=== PATIENT | male | born 1935 | race Caucasian/White ===

== ENCOUNTER 2021-07-04 14:51 | Inpatient (IN) ==
[2021-07-04] MEDS ORDERED: Hyoscyamine SL 0.125 MG TAB.SUBL PO PRN (21:18)
[2021-07-04] MEDS ORDERED: Diphenoxylate/Atropine 1 TAB TABLET PO PRN (21:18)
[2021-07-04] MEDS: *HR* OxyCODONE/APAP 10/325 TABLET PO PRN (23:12)
[2021-07-05] MEDS: *HR* Enoxaparin 40 MG/0.4 ML SYRINGE SQ SCH (05:34)
[2021-07-05 06:13] LABS: Basophils % 0.2 %; Eosinophils # 0.1 K/mcL (0.0-0.6); Eosinophils % 1.2 %; Hematocrit 26.9 % (37.5-50.1); Hemoglobin 8.8 g/dL (12.9-16.9); Lymphocytes # 0.7 K/mcL (0.6-4.6); Lymphocytes % 11.9 %; Mean Corpuscular HGB Conc 32.7 g/dL (31.6-35.5); Mean Corpuscular Hemoglobin 29.7 pg (28.0-33.3); Mean Corpuscular Volume 90.9 fL (83.0-100.0); Mean Platelet Volume 10.9 fL (9.4-12.4); Monocytes # 0.6 K/mcL (0.0-1.3); Monocytes % 9.6 %; Neutrophils # 4.6 K/mcL (1.6-8.9); Platelet Count 173 K/mcL (140-400); Red Blood Count 2.96 M/mcL (4.19-5.50); Red Cell Distribution Width 16.3 % (11.5-14.5); Segmented Neutrophils % 76.1 %; White Blood Count 6.1 K/mcL (4.3-11.1)
[2021-07-05 06:26] LABS: BUN/Creatinine Ratio 20 (6-26); Blood Urea Nitrogen 27 mg/dL (8-23); Carbon Dioxide 23 mEq/L (23-29); Chloride 109 mEq/L (98-107); Glucose 76 mg/dL (70-105); Osmolality,Calculated 288 (280-300); Sodium 137 mEq/L (136-145); eGFR For African Americans > 60 (> 60); eGFR For Non-African Americans 51 (> 60)
[2021-07-05] MEDS: Magnesium Oxide 400 MG TABLET PO SCH (08:02)
[2021-07-05] MEDS: Multivit/Ca/Min/Fe/FA 1 TAB TABLET PO SCH (08:02)
[2021-07-05] MEDS: Lactobacillus 1 EACH CAP.SPRINK PO SCH (08:02)
[2021-07-05] MEDS: Cholecalciferol (D-3) 1,000 UNIT (25MCG) TABLET PO SCH (08:02)
[2021-07-05] MEDS: Aspirin Enteric Coated 81 MG Tablet PO SCH (08:02)
[2021-07-05] MEDS ORDERED: metroNIDAZOLE 500 MG TABLET PO SCH (09:00)
[2021-07-05] MEDS: *HR* OxyCODONE/APAP 10/325 TABLET PO PRN ×2 (16:34→22:49)
[2021-07-05] MEDS: Famotidine 20 MG TABLET PO SCH (20:42)
[2021-07-05] MEDS ORDERED: *HR* OxyCODONE/APAP 5/325 TABLET PO SCH (21:00)
[2021-07-06 04:59] LABS: Basophils % 0.4 %; Eosinophils # 0.1 K/mcL (0.0-0.6); Hematocrit 28.8 % (37.5-50.1); Hemoglobin 9.3 g/dL (12.9-16.9); Immature Granulocytes % 0.7 % (0-4); Lymphocytes # 0.7 K/mcL (0.6-4.6); Lymphocytes % 10.3 %; Mean Corpuscular HGB Conc 32.3 g/dL (31.6-35.5); Mean Corpuscular Hemoglobin 29.5 pg (28.0-33.3); Mean Corpuscular Volume 91.4 fL (83.0-100.0); Mean Platelet Volume 10.8 fL (9.4-12.4); Monocytes # 0.7 K/mcL (0.0-1.3); Monocytes % 9.7 %; Neutrophils # 5.6 K/mcL (1.6-8.9); Platelet Count 198 K/mcL (140-400); Red Blood Count 3.15 M/mcL (4.19-5.50); Red Cell Distribution Width 16.4 % (11.5-14.5); Segmented Neutrophils % 77.9 %; White Blood Count 7.2 K/mcL (4.3-11.1)
[2021-07-06] MEDS: *HR* Enoxaparin 40 MG/0.4 ML SYRINGE SQ SCH (06:22)
[2021-07-06] MEDS: Aspirin Enteric Coated 81 MG Tablet PO SCH (08:22)
[2021-07-06] MEDS: Cholecalciferol (D-3) 1,000 UNIT (25MCG) TABLET PO SCH (08:23)
[2021-07-06] MEDS: Magnesium Oxide 400 MG TABLET PO SCH (08:23)
[2021-07-06] MEDS: Multivit/Ca/Min/Fe/FA 1 TAB TABLET PO SCH (08:23)
[2021-07-06] MEDS: Lactobacillus 1 EACH CAP.SPRINK PO SCH (08:23)
[2021-07-06] MEDS: *HR* OxyCODONE/APAP 10/325 TABLET PO PRN ×2 (18:27→23:01)
[2021-07-06] MEDS: Famotidine 20 MG TABLET PO SCH (23:01)
[2021-07-07] MEDS: Lactobacillus 1 EACH CAP.SPRINK PO SCH (09:23)
[2021-07-07] MEDS: Cholecalciferol (D-3) 1,000 UNIT (25MCG) TABLET PO SCH (09:23)
[2021-07-07] MEDS: Aspirin Enteric Coated 81 MG Tablet PO SCH (09:23)
[2021-07-07] MEDS: Multivit/Ca/Min/Fe/FA 1 TAB TABLET PO SCH (09:24)
[2021-07-07] MEDS: *HR* Enoxaparin 40 MG/0.4 ML SYRINGE SQ SCH ×2 (09:24→09:47)
[2021-07-07] MEDS: Magnesium Oxide 400 MG TABLET PO SCH (09:24)
[2021-07-07] MEDS ORDERED: 0.9 % Sodium Chloride 1,000 ML IV ONE (11:05)
[2021-07-07 11:29] LABS: Calcium 7.4 mg/dL (8.6-10.3); Potassium 4.5 mEq/L (3.5-5.1)
[2021-07-07 15:12] LABS: VBG Ionized Calcium 1.14 mmol/L (1.15-1.35)
[2021-07-07] MEDS: *HR* OxyCODONE/APAP 10/325 TABLET PO PRN (18:38)
[2021-07-07] MEDS: Famotidine 20 MG TABLET PO SCH (18:38)
[2021-07-07] MEDS: *HR* Heparin 5,000 UNIT/ML VIAL SQ SCH (22:46)
[2021-07-08 01:18] LABS: Bilirubin,Urine Negative (Negative); Blood,Urine Negative (Negative); Clarity,Urine Slightly Cloudy (Clear); Glucose,Urine (UA) Normal (Normal); Ketones,Urine Negative (Negative); Leukocyte Esterase,Urine Negative (Negative); Nitrite,Urine Negative (Negative); PH,Urine 5.5 pH Units (5.0-8.0); Protein,Urine Trace mg/dL (Neg-Trace); Urobilinogen,Urine Normal (Normal)
[2021-07-08 01:23] LABS: Color,Urine Yellow (Yellow)
[2021-07-08 01:24] LABS: Amorphous Sediment,Urine Few per hpf (None-Few)
[2021-07-08] MEDS: *HR* Heparin 5,000 UNIT/ML VIAL SQ SCH ×3 (04:32→19:40)
[2021-07-08 09:18] LABS: Basophils % 0.4 %; Eosinophils % 0.3 %; Hematocrit 32.5 % (37.5-50.1); Hemoglobin 10.4 g/dL (12.9-16.9); Immature Granulocytes % 0.7 % (0-4); Lymphocytes # 0.7 K/mcL (0.6-4.6); Lymphocytes % 10.7 %; Mean Corpuscular Hemoglobin 29.6 pg (28.0-33.3); Mean Corpuscular Volume 92.6 fL (83.0-100.0); Mean Platelet Volume 10.2 fL (9.4-12.4); Monocytes # 0.4 K/mcL (0.0-1.3); Monocytes % 5.8 %; Neutrophils # 5.6 K/mcL (1.6-8.9); Platelet Count 247 K/mcL (140-400); Red Blood Count 3.51 M/mcL (4.19-5.50); Red Cell Distribution Width 16.6 % (11.5-14.5); Segmented Neutrophils % 82.1 %; White Blood Count 6.8 K/mcL (4.3-11.1)
[2021-07-08 09:41] LABS: Calcium 7.2 mg/dL (8.6-10.3); Potassium 4.8 mEq/L (3.5-5.1)
[2021-07-08] MEDS: Multivit/Ca/Min/Fe/FA 1 TAB TABLET PO SCH (10:20)
[2021-07-08] MEDS: Magnesium Oxide 400 MG TABLET PO SCH (10:21)
[2021-07-08] MEDS: Aspirin Enteric Coated 81 MG Tablet PO SCH (10:21)
[2021-07-08] MEDS: Lactobacillus 1 EACH CAP.SPRINK PO SCH (10:21)
[2021-07-08] MEDS: Cholecalciferol (D-3) 1,000 UNIT (25MCG) TABLET PO SCH (10:21)
[2021-07-08] MEDS: Famotidine 20 MG TABLET PO SCH (19:37)
[2021-07-08] MEDS: *HR* OxyCODONE/APAP 10/325 TABLET PO PRN (19:58)
[2021-07-09] MEDS: *HR* Heparin 5,000 UNIT/ML VIAL SQ SCH ×3 (05:33→21:51)
[2021-07-09] MEDS: Magnesium Oxide 400 MG TABLET PO SCH (08:00)
[2021-07-09] MEDS: Cholecalciferol (D-3) 1,000 UNIT (25MCG) TABLET PO SCH (08:00)
[2021-07-09] MEDS: Lactobacillus 1 EACH CAP.SPRINK PO SCH (08:00)
[2021-07-09] MEDS: Aspirin Enteric Coated 81 MG Tablet PO SCH (08:00)
[2021-07-09] MEDS: Multivit/Ca/Min/Fe/FA 1 TAB TABLET PO SCH (08:00)
[2021-07-09] MEDS: Sennosides/Docusate Sodium TABLET PO PRN (12:18)
[2021-07-09] MEDS: Ondansetron ODT 4 MG TAB.RAPDIS PO PRN (15:39)
[2021-07-09] MEDS: Famotidine 20 MG TABLET PO SCH (21:49)
[2021-07-09] MEDS: *HR* OxyCODONE/APAP 10/325 TABLET PO PRN (21:50)
[2021-07-10] MEDS: *HR* Heparin 5,000 UNIT/ML VIAL SQ SCH ×2 (05:10→15:46)
[2021-07-10] MEDS: Magnesium Oxide 400 MG TABLET PO SCH (08:38)
[2021-07-10] MEDS: Aspirin Enteric Coated 81 MG Tablet PO SCH (08:39)
[2021-07-10] MEDS: Cholecalciferol (D-3) 1,000 UNIT (25MCG) TABLET PO SCH (08:39)
[2021-07-10] MEDS: Lactobacillus 1 EACH CAP.SPRINK PO SCH (08:39)
[2021-07-10] MEDS: Multivit/Ca/Min/Fe/FA 1 TAB TABLET PO SCH (08:39)
[2021-07-10] MEDS: *HR* OxyCODONE/APAP 10/325 TABLET PO PRN ×2 (08:43→22:06)
[2021-07-10] MEDS ORDERED: polyethylene glycoL 3350 17 GM POWD.PACK PO PRN (12:54)
[2021-07-10] MEDS: *HR* OxyCODONE/APAP 5/325 TABLET PO PRN (15:45)
[2021-07-10] MEDS: Sennosides/Docusate Sodium TABLET PO PRN (15:45)
[2021-07-10] MEDS: Apixaban 5 MG TABLET PO SCH (20:27)
[2021-07-10] MEDS: Famotidine 20 MG TABLET PO SCH (20:27)
[2021-07-11] MEDS: *HR* OxyCODONE/APAP 5/325 TABLET PO PRN ×3 (03:11→20:33)
[2021-07-11 05:50] LABS: Basophils % 0.6 %; Eosinophils # 0.1 K/mcL (0.0-0.6); Hematocrit 31.1 % (37.5-50.1); Hemoglobin 9.6 g/dL (12.9-16.9); Immature Granulocytes % 0.7 % (0-4); Lymphocytes # 0.7 K/mcL (0.6-4.6); Mean Corpuscular HGB Conc 30.9 g/dL (31.6-35.5); Mean Corpuscular Hemoglobin 29.6 pg (28.0-33.3); Mean Platelet Volume 10.3 fL (9.4-12.4); Monocytes # 0.5 K/mcL (0.0-1.3); Monocytes % 7.1 %; Neutrophils # 5.4 K/mcL (1.6-8.9); Platelet Count 234 K/mcL (140-400); Red Blood Count 3.24 M/mcL (4.19-5.50); Red Cell Distribution Width 16.7 % (11.5-14.5); Segmented Neutrophils % 79.6 %; White Blood Count 6.7 K/mcL (4.3-11.1)
[2021-07-11 06:05] LABS: Calcium 7.4 mg/dL (8.6-10.3); Potassium 4.6 mEq/L (3.5-5.1)
[2021-07-11] MEDS: Magnesium Oxide 400 MG TABLET PO SCH (08:19)
[2021-07-11] MEDS: Multivit/Ca/Min/Fe/FA 1 TAB TABLET PO SCH (08:19)
[2021-07-11] MEDS: Apixaban 5 MG TABLET PO SCH ×2 (08:19→20:33)
[2021-07-11] MEDS: Cholecalciferol (D-3) 1,000 UNIT (25MCG) TABLET PO SCH (08:19)
[2021-07-11] MEDS: Aspirin Enteric Coated 81 MG Tablet PO SCH (08:19)
[2021-07-11] MEDS: Lactobacillus 1 EACH CAP.SPRINK PO SCH (08:19)
[2021-07-11 18:26] LABS: Albumin 2.4 g/dL (3.5-5.7); Bilirubin,Total 0.5 mg/dL (0.3-1.0); Calcium 7.6 mg/dL (8.6-10.3); Globulin 2.4 g/dL (2.4-3.5); Potassium 4.5 mEq/L (3.5-5.1); Total Protein 4.8 g/dL (6.4-8.9)
[2021-07-11] MEDS: Famotidine 20 MG TABLET PO SCH (20:32)
[2021-07-12] MEDS: *HR* OxyCODONE/APAP 5/325 TABLET PO PRN (02:54)
[2021-07-12 06:05] LABS: Calcium 7.4 mg/dL (8.6-10.3); Potassium 4.5 mEq/L (3.5-5.1)
[2021-07-12] MEDS: Magnesium Oxide 400 MG TABLET PO SCH (09:52)
[2021-07-12] MEDS: Cholecalciferol (D-3) 1,000 UNIT (25MCG) TABLET PO SCH (09:52)
[2021-07-12] MEDS: Lactobacillus 1 EACH CAP.SPRINK PO SCH (09:54)
[2021-07-12] MEDS: Aspirin Enteric Coated 81 MG Tablet PO SCH (09:54)
[2021-07-12] MEDS: Multivit/Ca/Min/Fe/FA 1 TAB TABLET PO SCH (09:54)
[2021-07-12] MEDS: Apixaban 5 MG TABLET PO SCH ×2 (09:54→19:20)
[2021-07-12 09:57] LABS: Basophils % 0.5 %; Eosinophils % 0.5 %; Hematocrit 30.6 % (37.5-50.1); Hemoglobin 9.7 g/dL (12.9-16.9); Immature Granulocytes % 0.6 % (0-4); Lymphocytes # 0.7 K/mcL (0.6-4.6); Lymphocytes % 7.7 %; Mean Corpuscular HGB Conc 31.7 g/dL (31.6-35.5); Mean Corpuscular Hemoglobin 29.7 pg (28.0-33.3); Mean Corpuscular Volume 93.6 fL (83.0-100.0); Mean Platelet Volume 9.7 fL (9.4-12.4); Monocytes # 0.4 K/mcL (0.0-1.3); Monocytes % 5.1 %; Neutrophils # 7.5 K/mcL (1.6-8.9); Platelet Count 253 K/mcL (140-400); Red Blood Count 3.27 M/mcL (4.19-5.50); Red Cell Distribution Width 16.7 % (11.5-14.5); Segmented Neutrophils % 85.6 %; White Blood Count 8.7 K/mcL (4.3-11.1)
[2021-07-12 10:20] LABS: Calcium 7.3 mg/dL (8.6-10.3); Potassium 4.3 mEq/L (3.5-5.1)
[2021-07-12] MEDS: Famotidine 20 MG TABLET PO SCH (19:21)
[2021-07-12] MEDS: Sennosides/Docusate Sodium TABLET PO PRN (19:23)
[2021-07-12] MEDS: *HR* OxyCODONE/APAP 10/325 TABLET PO PRN (19:24)
[2021-07-12] MEDS: polyethylene glycoL 3350 17 GM POWD.PACK PO SCH (20:51)
[2021-07-13 07:50] LABS: Basophils % 0.3 %; Eosinophils # 0.1 K/mcL (0.0-0.6); Hematocrit 32.4 % (37.5-50.1); Hemoglobin 10.3 g/dL (12.9-16.9); Immature Granulocytes % 0.7 % (0-4); Lymphocytes % 11.1 %; Mean Corpuscular HGB Conc 31.8 g/dL (31.6-35.5); Mean Corpuscular Hemoglobin 29.8 pg (28.0-33.3); Mean Corpuscular Volume 93.6 fL (83.0-100.0); Mean Platelet Volume 10.4 fL (9.4-12.4); Monocytes # 0.5 K/mcL (0.0-1.3); Monocytes % 5.6 %; Neutrophils # 7.5 K/mcL (1.6-8.9); Platelet Count 300 K/mcL (140-400); Red Blood Count 3.46 M/mcL (4.19-5.50); Segmented Neutrophils % 81.3 %; White Blood Count 9.2 K/mcL (4.3-11.1)
[2021-07-13 08:09] LABS: Calcium 7.4 mg/dL (8.6-10.3); Potassium 4.2 mEq/L (3.5-5.1)
[2021-07-13] MEDS: Apixaban 5 MG TABLET PO SCH ×2 (08:29→19:56)
[2021-07-13] MEDS: Multivit/Ca/Min/Fe/FA 1 TAB TABLET PO SCH (08:29)
[2021-07-13] MEDS: polyethylene glycoL 3350 17 GM POWD.PACK PO SCH ×2 (08:29→19:56)
[2021-07-13] MEDS: Aspirin Enteric Coated 81 MG Tablet PO SCH (08:29)
[2021-07-13] MEDS: Magnesium Oxide 400 MG TABLET PO SCH (08:29)
[2021-07-13] MEDS: Lactobacillus 1 EACH CAP.SPRINK PO SCH (08:29)
[2021-07-13] MEDS: Cholecalciferol (D-3) 1,000 UNIT (25MCG) TABLET PO SCH (08:30)
[2021-07-13] MEDS ORDERED: Lactulose Oral Soln 20 GM/30 ML UDC PO ONE (09:58)
[2021-07-13] MEDS ORDERED: Bisacodyl 10 MG RECTAL SUPPOSITORY RC ONE (09:59)
[2021-07-13] MEDS: Famotidine 20 MG TABLET PO SCH (19:56)
[2021-07-14 04:47] LABS: Basophils % 0.4 %; Eosinophils # 0.1 K/mcL (0.0-0.6); Eosinophils % 1.1 %; Hematocrit 28.2 % (37.5-50.1); Hemoglobin 9.1 g/dL (12.9-16.9); Immature Granulocytes % 0.6 % (0-4); Lymphocytes # 0.9 K/mcL (0.6-4.6); Lymphocytes % 12.6 %; Mean Corpuscular HGB Conc 32.3 g/dL (31.6-35.5); Mean Corpuscular Hemoglobin 29.9 pg (28.0-33.3); Mean Corpuscular Volume 92.8 fL (83.0-100.0); Mean Platelet Volume 10.3 fL (9.4-12.4); Monocytes # 0.6 K/mcL (0.0-1.3); Monocytes % 8.3 %; Neutrophils # 5.5 K/mcL (1.6-8.9); Platelet Count 254 K/mcL (140-400); Red Blood Count 3.04 M/mcL (4.19-5.50); White Blood Count 7.1 K/mcL (4.3-11.1)
[2021-07-14 05:03] LABS: Calcium 7.2 mg/dL (8.6-10.3); Potassium 3.8 mEq/L (3.5-5.1)
[2021-07-14] MEDS: Cholecalciferol (D-3) 1,000 UNIT (25MCG) TABLET PO SCH (08:23)
[2021-07-14] MEDS: Magnesium Oxide 400 MG TABLET PO SCH (08:23)
[2021-07-14] MEDS: Aspirin Enteric Coated 81 MG Tablet PO SCH (08:23)
[2021-07-14] MEDS: Apixaban 5 MG TABLET PO SCH ×2 (08:23→20:10)
[2021-07-14] MEDS: polyethylene glycoL 3350 17 GM POWD.PACK PO SCH ×2 (08:24→20:09)
[2021-07-14] MEDS: Multivit/Ca/Min/Fe/FA 1 TAB TABLET PO SCH (08:24)
[2021-07-14] MEDS: Lactobacillus 1 EACH CAP.SPRINK PO SCH (08:24)
[2021-07-14] MEDS ORDERED: Furosemide 40 MG in 0.9 % Sodium Chloride 50 ML IV SCH (11:15)
[2021-07-14] MEDS: Furosemide 40 MG/4 ML VIAL IVP SCH ×3 (12:15→20:10)
[2021-07-14] MEDS: Sennosides/Docusate Sodium TABLET PO PRN (20:10)
[2021-07-14] MEDS: Famotidine 20 MG TABLET PO SCH (20:10)
[2021-07-14] MEDS: Ondansetron ODT 4 MG TAB.RAPDIS PO PRN (20:13)
[2021-07-15] MEDS ORDERED: Lactulose Oral Soln 20 GM/30 ML UDC PO ONE (08:23)
[2021-07-15 08:24] LABS: Basophils % 0.6 %; Eosinophils # 0.1 K/mcL (0.0-0.6); Eosinophils % 1.1 %; Hematocrit 31.4 % (37.5-50.1); Hemoglobin 9.9 g/dL (12.9-16.9); Immature Granulocytes % 0.5 % (0-4); Lymphocytes # 0.8 K/mcL (0.6-4.6); Lymphocytes % 12.3 %; Mean Corpuscular HGB Conc 31.5 g/dL (31.6-35.5); Mean Corpuscular Hemoglobin 29.7 pg (28.0-33.3); Mean Corpuscular Volume 94.3 fL (83.0-100.0); Mean Platelet Volume 10.4 fL (9.4-12.4); Monocytes # 0.5 K/mcL (0.0-1.3); Monocytes % 8.2 %; Neutrophils # 4.9 K/mcL (1.6-8.9); Platelet Count 258 K/mcL (140-400); Red Blood Count 3.33 M/mcL (4.19-5.50); Red Cell Distribution Width 16.8 % (11.5-14.5); Segmented Neutrophils % 77.3 %; White Blood Count 6.3 K/mcL (4.3-11.1)
[2021-07-15] MEDS: Lactobacillus 1 EACH CAP.SPRINK PO SCH (10:27)
[2021-07-15] MEDS: Multivit/Ca/Min/Fe/FA 1 TAB TABLET PO SCH (10:27)
[2021-07-15] MEDS: Aspirin Enteric Coated 81 MG Tablet PO SCH (10:27)
[2021-07-15] MEDS: Apixaban 5 MG TABLET PO SCH ×2 (10:27→22:25)
[2021-07-15] MEDS: Cholecalciferol (D-3) 1,000 UNIT (25MCG) TABLET PO SCH (10:27)
[2021-07-15] MEDS: Magnesium Oxide 400 MG TABLET PO SCH (10:28)
[2021-07-15] MEDS: polyethylene glycoL 3350 17 GM POWD.PACK PO SCH ×2 (10:28→22:27)
[2021-07-15 10:36] LABS: Calcium 7.3 mg/dL (8.6-10.3); Potassium 3.8 mEq/L (3.5-5.1)
[2021-07-15] MEDS: Furosemide 40 MG/4 ML VIAL IVP SCH ×2 (11:52→22:27)
[2021-07-15 18:25] LABS: Albumin/Globulin Ratio 0.7 (1.1-2.2); Bilirubin,Total 0.5 mg/dL (0.3-1.0); Calcium 7.2 mg/dL (8.6-10.3); Globulin 2.7 g/dL (2.4-3.5); Potassium 3.5 mEq/L (3.5-5.1); Total Protein 4.7 g/dL (6.4-8.9)
[2021-07-15] MEDS: Famotidine 20 MG TABLET PO SCH (22:26)
[2021-07-15 22:34] LABS: Bilirubin,Urine Negative (Negative); Blood,Urine Moderate (Negative); Clarity,Urine Slightly Cloudy (Clear); Glucose,Urine (UA) Normal (Normal); Ketones,Urine Negative (Negative); Leukocyte Esterase,Urine Small (Negative); Nitrite,Urine Positive (Negative); Protein,Urine Negative (Neg-Trace); Urobilinogen,Urine Normal (Normal)
[2021-07-15 22:35] LABS: Color,Urine Yellow (Yellow)
[2021-07-15 22:36] LABS: Amorphous Sediment,Urine Few per hpf (None-Few); Bacteria,Urine Moderate per hpf (None-Few); Hyaline Casts,Urine Few per lpf (None Seen)
[2021-07-16] MEDS: Lactobacillus 1 EACH CAP.SPRINK PO SCH (08:33)
[2021-07-16] MEDS: Magnesium Oxide 400 MG TABLET PO SCH (08:33)
[2021-07-16] MEDS: Multivit/Ca/Min/Fe/FA 1 TAB TABLET PO SCH (08:33)
[2021-07-16] MEDS: Aspirin Enteric Coated 81 MG Tablet PO SCH (08:33)
[2021-07-16] MEDS: Cholecalciferol (D-3) 1,000 UNIT (25MCG) TABLET PO SCH (08:33)
[2021-07-16] MEDS: Apixaban 5 MG TABLET PO SCH ×2 (08:33→20:59)
[2021-07-16] MEDS: polyethylene glycoL 3350 17 GM POWD.PACK PO SCH ×2 (08:34→20:59)
[2021-07-16] MEDS: cefTRIAXone 1,000 MG in Water for inj. (sterile) 10 ML IVP SCH (08:34)
[2021-07-16] MEDS: Furosemide 40 MG TABLET PO SCH ×2 (11:13→16:11)
[2021-07-16] MEDS: Famotidine 20 MG TABLET PO SCH (20:59)
[2021-07-16] MEDS ORDERED: *HR* Heparin 5,000 UNIT/ML VIAL SQ SCH (22:00)
[2021-07-17 05:58] LABS: Basophils % 0.3 %; Eosinophils # 0.1 K/mcL (0.0-0.6); Eosinophils % 0.7 %; Hematocrit 28.8 % (37.5-50.1); Hemoglobin 9.3 g/dL (12.9-16.9); Immature Granulocytes % 0.6 % (0-4); Lymphocytes # 0.9 K/mcL (0.6-4.6); Lymphocytes % 12.7 %; Mean Corpuscular HGB Conc 32.3 g/dL (31.6-35.5); Mean Corpuscular Volume 92.9 fL (83.0-100.0); Mean Platelet Volume 10.8 fL (9.4-12.4); Monocytes # 0.6 K/mcL (0.0-1.3); Monocytes % 9.2 %; Neutrophils # 5.2 K/mcL (1.6-8.9); Platelet Count 245 K/mcL (140-400); Red Cell Distribution Width 16.1 % (11.5-14.5); Segmented Neutrophils % 76.5 %; White Blood Count 6.8 K/mcL (4.3-11.1)
[2021-07-17 06:13] LABS: Calcium 7.1 mg/dL (8.6-10.3); Potassium 3.6 mEq/L (3.5-5.1)
[2021-07-17] MEDS: Magnesium Oxide 400 MG TABLET PO SCH (08:15)
[2021-07-17] MEDS: Multivit/Ca/Min/Fe/FA 1 TAB TABLET PO SCH (08:16)
[2021-07-17] MEDS: Aspirin Enteric Coated 81 MG Tablet PO SCH (08:16)
[2021-07-17] MEDS: polyethylene glycoL 3350 17 GM POWD.PACK PO SCH ×2 (08:16→22:14)
[2021-07-17] MEDS: Apixaban 5 MG TABLET PO SCH ×2 (08:16→21:12)
[2021-07-17] MEDS: Furosemide 40 MG TABLET PO SCH (08:16)
[2021-07-17] MEDS: Lactobacillus 1 EACH CAP.SPRINK PO SCH (08:16)
[2021-07-17] MEDS: Cholecalciferol (D-3) 1,000 UNIT (25MCG) TABLET PO SCH (08:16)
[2021-07-17] MEDS: cefTRIAXone 1,000 MG in Water for inj. (sterile) 10 ML IVP SCH (08:16)
[2021-07-17] MEDS: Famotidine 20 MG TABLET PO SCH (21:12)
[2021-07-18 07:01] LABS: Basophils % 0.6 %; Eosinophils # 0.1 K/mcL (0.0-0.6); Eosinophils % 1.3 %; Hematocrit 27.5 % (37.5-50.1); Hemoglobin 8.9 g/dL (12.9-16.9); Immature Granulocytes % 0.6 % (0-4); Lymphocytes # 1.1 K/mcL (0.6-4.6); Lymphocytes % 20.6 %; Mean Corpuscular HGB Conc 32.4 g/dL (31.6-35.5); Mean Corpuscular Hemoglobin 30.4 pg (28.0-33.3); Mean Corpuscular Volume 93.9 fL (83.0-100.0); Mean Platelet Volume 10.9 fL (9.4-12.4); Monocytes # 0.6 K/mcL (0.0-1.3); Monocytes % 10.5 %; Neutrophils # 3.5 K/mcL (1.6-8.9); Platelet Count 234 K/mcL (140-400); Red Blood Count 2.93 M/mcL (4.19-5.50); Red Cell Distribution Width 16.4 % (11.5-14.5); Segmented Neutrophils % 66.4 %; White Blood Count 5.3 K/mcL (4.3-11.1)
[2021-07-18] MEDS: Apixaban 5 MG TABLET PO SCH ×2 (07:24→21:06)
[2021-07-18] MEDS: Magnesium Oxide 400 MG TABLET PO SCH (07:24)
[2021-07-18] MEDS: Lactobacillus 1 EACH CAP.SPRINK PO SCH (07:24)
[2021-07-18] MEDS: Aspirin Enteric Coated 81 MG Tablet PO SCH (07:24)
[2021-07-18] MEDS: Cholecalciferol (D-3) 1,000 UNIT (25MCG) TABLET PO SCH (07:25)
[2021-07-18] MEDS: Multivit/Ca/Min/Fe/FA 1 TAB TABLET PO SCH (07:25)
[2021-07-18] MEDS: cefTRIAXone 1,000 MG in Water for inj. (sterile) 10 ML IVP SCH (07:25)
[2021-07-18] MEDS: polyethylene glycoL 3350 17 GM POWD.PACK PO SCH ×3 (07:25→21:06)
[2021-07-18 07:26] LABS: Calcium 7.1 mg/dL (8.6-10.3); Potassium 3.4 mEq/L (3.5-5.1)
[2021-07-18] MEDS: Ondansetron ODT 4 MG TAB.RAPDIS PO PRN (08:15)
[2021-07-18] MEDS: Famotidine 20 MG TABLET PO SCH (21:06)
[2021-07-19 06:38] LABS: Basophils % 0.7 %; Eosinophils # 0.1 K/mcL (0.0-0.6); Eosinophils % 1.4 %; Hematocrit 28.8 % (37.5-50.1); Immature Granulocytes % 0.5 % (0-4); Lymphocytes % 16.7 %; Mean Corpuscular HGB Conc 31.3 g/dL (31.6-35.5); Mean Platelet Volume 10.7 fL (9.4-12.4); Monocytes # 0.6 K/mcL (0.0-1.3); Monocytes % 10.5 %; Platelet Count 212 K/mcL (140-400); Red Cell Distribution Width 16.2 % (11.5-14.5); Segmented Neutrophils % 70.2 %; White Blood Count 5.7 K/mcL (4.3-11.1)
[2021-07-19 06:53] LABS: Calcium 7.4 mg/dL (8.6-10.3); Potassium 3.7 mEq/L (3.5-5.1)
[2021-07-19] MEDS: Multivit/Ca/Min/Fe/FA 1 TAB TABLET PO SCH (08:45)
[2021-07-19] MEDS: Magnesium Oxide 400 MG TABLET PO SCH (08:46)
[2021-07-19] MEDS: Lactobacillus 1 EACH CAP.SPRINK PO SCH (08:48)
[2021-07-19] MEDS: Apixaban 5 MG TABLET PO SCH (08:49)
[2021-07-19] MEDS: Aspirin Enteric Coated 81 MG Tablet PO SCH (08:49)
[2021-07-19] MEDS: Cholecalciferol (D-3) 1,000 UNIT (25MCG) TABLET PO SCH (08:49)
[2021-07-19] MEDS: polyethylene glycoL 3350 17 GM POWD.PACK PO SCH ×3 (08:50→20:10)
[2021-07-19 19:55] VITALS: RESP 16
[2021-07-19] MEDS: Famotidine 20 MG TABLET PO SCH (20:10)
[2021-07-19] MEDS: *HR* OxyCODONE/APAP 5/325 TABLET PO PRN (21:36)
[2021-07-20] MEDS: Lactobacillus 1 EACH CAP.SPRINK PO SCH (07:51)
[2021-07-20] MEDS: Aspirin Enteric Coated 81 MG Tablet PO SCH (07:52)
[2021-07-20] MEDS: Cholecalciferol (D-3) 1,000 UNIT (25MCG) TABLET PO SCH (07:52)
[2021-07-20] MEDS: Magnesium Oxide 400 MG TABLET PO SCH (07:52)
[2021-07-20] MEDS: Multivit/Ca/Min/Fe/FA 1 TAB TABLET PO SCH (07:52)
[2021-07-20] MEDS: polyethylene glycoL 3350 17 GM POWD.PACK PO SCH ×4 (07:52→21:31)
[2021-07-20 19:07] VITALS: TEMP 98.2
[2021-07-20] MEDS: *HR* OxyCODONE/APAP 5/325 TABLET PO PRN (21:29)
[2021-07-20] MEDS: Famotidine 20 MG TABLET PO SCH (21:30)
[2021-07-21 07:31] VITALS: BP 143/76; PULSE 98; O2SAT 95
[2021-07-21 08:03] LABS: Basophils % 0.5 %; Eosinophils # 0.1 K/mcL (0.0-0.6); Eosinophils % 1.4 %; Hematocrit 31.4 % (37.5-50.1); Immature Granulocytes % 0.5 % (0-4); Lymphocytes # 1.1 K/mcL (0.6-4.6); Lymphocytes % 18.8 %; Mean Corpuscular HGB Conc 31.8 g/dL (31.6-35.5); Mean Corpuscular Hemoglobin 30.4 pg (28.0-33.3); Mean Corpuscular Volume 95.4 fL (83.0-100.0); Mean Platelet Volume 10.4 fL (9.4-12.4); Monocytes # 0.5 K/mcL (0.0-1.3); Monocytes % 8.6 %; Platelet Count 209 K/mcL (140-400); Red Blood Count 3.29 M/mcL (4.19-5.50); Segmented Neutrophils % 70.2 %; White Blood Count 5.7 K/mcL (4.3-11.1)
[2021-07-21 08:20] LABS: Calcium 7.6 mg/dL (8.6-10.3); Potassium 2.9 mEq/L (3.5-5.1)
[2021-07-21] MEDS ORDERED: Potassium Chloride Elixir 20 MEQ/15 ML UDC PO ONE (10:00)
[2021-07-21] MEDS: Cholecalciferol (D-3) 1,000 UNIT (25MCG) TABLET PO SCH (10:41)
[2021-07-21] MEDS: Multivit/Ca/Min/Fe/FA 1 TAB TABLET PO SCH (10:42)
[2021-07-21] MEDS: polyethylene glycoL 3350 17 GM POWD.PACK PO SCH ×2 (10:42→16:07)
[2021-07-21] MEDS: Aspirin Enteric Coated 81 MG Tablet PO SCH (10:42)
[2021-07-21] MEDS: Lactobacillus 1 EACH CAP.SPRINK PO SCH (10:42)
[2021-07-21] MEDS: Magnesium Oxide 400 MG TABLET PO SCH (10:42)
[2021-07-21 14:39] LABS: INR 1.1; Prothrombin Time 12.5 Seconds (9.4-12.1)
[2021-07-21 14:42] LABS: Activated Partial Thrombo Time 29.6 Seconds (26.0-36.0)
[2021-07-21 15:02] LABS: Calcium 7.4 mg/dL (8.6-10.3); Magnesium 1.9 mg/dL (1.6-2.6); Potassium 3.4 mEq/L (3.5-5.1)
== END 2021-07-21 17:32 | disposition short-term general hospital (02) | DRG 560 ==
LOC: INPGRE 20:50
PROVIDERS: ADMIT Family Medicine; ATTEND Family Medicine